=== PATIENT | female | born 1995 | race Caucasian/White ===

== ENCOUNTER 2018-10-09 13:14 | Emergency (ER) | payer MEDICAID ==
[~2018-10-09] VITALS: Ht 162.6 cm; Wt 67.1 kg
[2018-10-09 13:33] VITALS: BP 117/72
--- NOTE | 2018-10-09 13:33 | NUR ---
ED Nurse Note: Patient ambulated to ER from home c/o lower back pain 10/17 which started a week ago. Patient is alert and oriented x 4 and ambulatory. skin clean and intact. calm and cooperative. no acute distress noted at this time.
[2018-10-09] MEDS ORDERED: NKM (13:34)
--- NOTE | 2018-10-09 14:48 | Emergency Room Report ---
History of Present Illness General Chief Complaint: Pain Source: Patient Present Illness HPI 23-year-old female presents to the emergency department complaining of 8 out of 10 severity low back pain is 4 days. Patient denies trauma or fall she denies fevers or chills she does report some dysuria she denies hematuria, abdominal pain or tenderness. Patient reports suspicion for possible . Patient denies recent spinal procedures or history of neoplastic disease. She reports pain both midline and paraspinal without radiation. Denies numbness tingling or loss of sensation or gross motor movements of the extremities, incontinence of bowel or bladder. Denies CP, Palpitations, LOC, AMS, dizziness, Changes in Vision, weakness or a sudden severe headache. Allergies: Coded Allergies: No Known Allergies (Unverified , 10/09/18) Patient History Past Medical History: see triage record Past Surgical History: none Pertinent Family History: none Last Menstrual Period: 09/2018 Now: No Reviewed Nursing Documentation: PMH: Agreed; PSxH: Agreed Nursing Documentation-PMH Past Medical History: No History, Except For Review of Systems All Other Systems: negative except mentioned in HPI Physical Exam Vital Signs Date Time Temp Pulse Resp B/P (MAP) Pulse Ox O2 Delivery O2 Flow Rate FiO2 10/09/18 13:29 98.8 61 16 117/72 (87) 98 Room Air Sp02 EP Interpretation: reviewed, normal General Appearance: no apparent distress, alert, GCS 15, non-toxic Head: normocephalic, atraumatic Eyes: bilateral eye normal inspection, bilateral eye PERRL ENT: hearing grossly normal, normal voice Neck: full range of motion Respiratory: lungs clear, normal breath sounds, speaking full sentences Cardiovascular #1: regular rate, rhythm Gastrointestinal: non tender, soft, non-distended, no guarding Genitourinary: normal inspection, no CVA tenderness Musculoskeletal: gait/station normal, normal range of motion, tender - Mild Tenderness to palpation to paraspinal muscles of the lower back with mild midline tenderness as well, FROM, no step-offs or obvious deformities. no saddle anesthesia. Neurologic: alert, oriented x3, responsive, motor strength/tone normal, sensory intact, speech normal, grossly normal Psychiatric: judgement/insight normal Medical Decision Making PA Attestation Dr. Gaviria is my supervising Physician whom patient management has been discussed with. Diagnostic Impression: Primary Impression: Back pain Qualified Codes: M54.5 - Low back pain ER Course Pt. presents to ED c/o LBP. Ddx considered: UTI, , Pyelo, epidural abscess, fracture, sprain/strain , meningitis, spinal chord injury, sciatica, cauda equina, Pyelonephritis, renal calculi just to name a few. Vital signs reviewed and are WNL during ED visit. Pt. is afebrile with no signs of infection No new symptoms, and denies recent trauma. No saddle anesthesia noted, Pt. denies incontinence Neurovascular is intact ROM is limited due to pain * Mild Tenderness to palpation to paraspinal muscles of the lower back with mild midline tenderness as well, FROM, no step-offs or obvious deformities. no saddle anesthesia. *Pt. describes pain today as moderate and radiates across the lower back. ORDERS: -UA: WNL -urine Hcg: negative INTERVENTIONS: - Lidoderm - Tramadol PO - Toradol IM DISCHARGE: At this time pt. is stable for d/c to home. Will provide printed patient care instructions, and any necessary prescriptions. Care plan and follow up instructions have been discussed with the patient prior to discharge. Labs Test 10/09/18 14:40 Urine Color Yellow Urine Appearance Clear Urine pH 6 (4.5-8.0) Urine Specific [place] 1.015 (1.005-1.035) Urine Protein Negative (NEGATIVE) Urine Glucose (UA) Negative (NEGATIVE) Urine Ketones Negative (NEGATIVE) Urine Blood Negative (NEGATIVE) Urine Nitrite Negative (NEGATIVE) Urine Bilirubin Negative (NEGATIVE) Urine Urobilinogen 1 MG/DL (0.0-1.0) Urine Leukocyte Esterase Negative (NEGATIVE) Urine HCG, Qualitative Negative (NEGATIVE) Last Vital Signs Date Time Temp Pulse Resp B/P (MAP) Pulse Ox O2 Delivery O2 Flow Rate FiO2 10/09/18 13:33 98.8 73 16 117/72 98 Room Air Disposition: HOME, SELF-CARE Condition: Stable Scripts Ibuprofen* (MOTRIN*) 600 Mg Tablet 600 MG ORAL THREE TIMES A DAY, #30 TAB 0 Refills Prov: Nirmala Park 10/09/18 Methocarbamol* (ROBAXIN-750*) 750 Mg Tablet 750 MG PO QID for 7 Days, #28 TAB 0 Refills Prov: Nirmala Park 10/09/18 Patient Instructions: Back Pain, Adult, [id number] Additional Instructions: Take medications as directed. Follow up with a Primary Care Provider in 3-5 days, even if your symptoms have resolved. Return sooner to ED if new symptoms occur, or current symptoms become worse. Do not drink alcohol, drive, or operate heavy machinery while taking Robaxin ( Muscle Relaxer) as this may cause drowsiness. - Please note that this Emergency Department Report was dictated using TripletPl[employer] layer helper technology software, occasionally this can lead to erroneous entry secondary to interpretation by the dictation equipment. Nirmala Park Oct 09, 2018 14:48
[2018-10-09 15:15] LABS: APPEARANCE,URINE CLEAR; BILIRUBIN, URINE NEGATIVE (NEGATIVE); GLUCOSE, URINE (UA) NEGATIVE (NEGATIVE); KETONES,URINE NEGATIVE (NEGATIVE); LEUKOCYTE ESTERASE ,URINE NEGATIVE (NEGATIVE); NITRITE,URINE NEGATIVE (NEGATIVE); PH,URINE 6 (4.5-8.0); PROTEIN,URINE NEGATIVE (NEGATIVE); UROBILINOGEN,URINE 1 MG/DL (0.0-1.0)
[2018-10-09 15:16] LABS: COLOR,URINE YELLOW
[2018-10-09] MEDS ORDERED: ROBAXIN-750750 MG PO (15:22)
[2018-10-09] MEDS ORDERED: IBUPROFEN600 MG ORAL (15:22)
[2018-10-09] MEDS ORDERED: traMADol 50mg tab ORAL ONE (15:30)
[2018-10-09] MEDS ORDERED: Ketorolac 30mg Inj IM ONE (15:30)
[2018-10-09 15:45] VITALS: BP 122/71
--- NOTE | 2018-10-09 15:45 | NUR ---
ER DISCHARGE NOTE: Patient is cleared to be discharged per ERPA, pt is aox4, on room air, with stable vital signs. pt was given dc and prescription instructions, pt was able to verbalize understanding, pt id band removed. pt is able to ambulate with steady gait. pt took all belongings.
== END 2018-10-09 16:00 | disposition home or self-care (01) ==
LOC: EMR 16:00
DX: M54.5 Low back pain (principal)
CPT/HCPCS: 81003; 81025; 96372; 99283; J1885

== ENCOUNTER 2018-11-07 11:17 | Emergency (ER) | payer SELFPAY ==
[~2018-11-07] VITALS: Ht 162.6 cm; Wt 71.7 kg
[~2018-11-07 11:17] MED LIST: IBUPROFEN600 MG ORAL; NKM; ROBAXIN-750750 MG PO
[2018-11-07 11:23] VITALS: BP 120/67
--- NOTE | 2018-11-07 11:23 | NUR ---
ED Nurse Note: Patient walked in c/o back pain and stomach pain that started today with episodes of vomiting as well as dysuria. Pt denies diarrhea. Pt rates pain at 9/10. Pt is A&O x4 with no s/s of acute distress noted at this time. ERMD at bedside evaluating the pt.
--- NOTE | 2018-11-07 11:55 | NUR ---
ED Nurse Note: ERMD AT THE BEDSIDE EVALUATING THE PT. RN AT THE BEDSIDE THE WITNESS
[2018-11-07] MEDS ORDERED: CEPHALEXIN500 MG ORAL (12:01)
[2018-11-07] MEDS ORDERED: BACTRIM DS TAB1 EAC1 ORAL (12:01)
[2018-11-07] MEDS ORDERED: ACETAMINOPHEN-1 EAC1 ORAL (12:01)
[2018-11-07 12:10] VITALS: BP 75/67
--- NOTE | 2018-11-07 12:10 | NUR ---
ER DISCHARGE NOTE: Patient is cleared to be discharged per ERMD, pt is aox4, on room air, with stable vital signs. pt was given dc and prescription instructions, pt was able to verbalize understanding, pt id band and iv site removed without complications. pt is able to ambulate with steady gait. pt took all belongings.
--- NOTE | 2018-11-07 15:25 | Emergency Room Report ---
History of Present Illness General Chief Complaint: Vomiting Source: Patient Present Illness HPI 23-year-old female presents ED for evaluation. Patient states that she has some bumps around her rectal area for the last week. States they are very painful and itchy. Denies fevers or chills. Pain is throbbing, 6 out of 10, nonradiating. No other aggravating relieving factors. Denies any other associated symptoms Allergies: Coded Allergies: No Known Allergies (Unverified , 10/09/18) Patient History Past Medical History: none Past Surgical History: none Pertinent Family History: none Social History: Denies: smoking, alcohol use, drug use Now: No Immunizations: UTD Reviewed Nursing Documentation: PMH: Agreed; PSxH: Agreed Nursing Documentation-PMH Past Medical History: No History, Except For Review of Systems All Other Systems: negative except mentioned in HPI Physical Exam Vital Signs Date Time Temp Pulse Resp B/P (MAP) Pulse Ox O2 Delivery O2 Flow Rate FiO2 11/07/18 11:20 98.6 79 19 120/67 (84) 100 Room Air Sp02 EP Interpretation: reviewed, normal General Appearance: no apparent distress, alert, GCS 15, non-toxic Head: normocephalic Eyes: bilateral eye normal inspection, bilateral eye PERRL ENT: normal ENT inspection Neck: normal inspection Respiratory: normal inspection Cardiovascular #1: normal inspection Gastrointestinal: non tender Rectal: other - dental resident present, multiple healing abscesses to buttock. area of induration/erythema to R upper buttock. no fluctuance Genitourinary: no CVA tenderness Musculoskeletal: normal inspection Neurologic: alert, oriented x3, responsive, motor strength/tone normal, sensory intact, speech normal Psychiatric: normal inspection Skin: other - abscess L upper buttock Lymphatic: normal inspection Medical Decision Making Diagnostic Impression: Primary Impression: Abscess of buttock ER Course Hospital Course 23 yo F presents with multiple bumps to buttock Differential diagnoses include: Cellulitis, dermatitis, insect bite, abscess Clinical course Patient placed on stretcher. After initial history, physical exam reveals a young female in no acute distress. Her on present. On exam there are multiple healing abscesses on the buttock bilaterally. There is one area of induration and erythema to the right upper buttock. Nonfluctuant. No discharge. discussed findings with patient. Not amenable to I&D at this time. Will treat conservatively with warm compresses and antibiotics. Patient agrees with plan. Safe for discharge for close outpatient follow-up. Does not have a PMD. Will provide referrals Diagnosis - abscess of buttock stable and discharged to home with prescription for keflex, bactrim, tylenol # 3. warm soaks TID. Instructed to followup with PMD. Instructed return to ED if symptoms recur or worsen Last Vital Signs Date Time Temp Pulse Resp B/P (MAP) Pulse Ox O2 Delivery O2 Flow Rate FiO2 11/07/18 12:10 98.6 73 19 75/67 100 Room Air Status: improved Disposition: HOME, SELF-CARE Condition: Stable Scripts Acetaminophen With Codeine (T#3) (TYLENOL #3 TAB*) Y Tab 1 TAB ORAL Q8H PRN for For Pain, #12 TAB Prov: Kenn Howell MD 11/07/18 Trimethoprim/Sulfamethoxazole 160/800* (BACTRIM DS TABLET*) 1 Each Tablet 1 TAB ORAL Q12H, #14 TAB 0 Refills Prov: Kenn Howell MD 11/07/18 Cephalexin* (KEFLEX*) 500 Mg Capsule 500 MG ORAL EVERY 6 HOURS for 7 Days, CAP Prov: Kenn Howell MD 11/07/18 Referrals: NOT CHOSEN IPA/,REFERRING (PCP) [facility] Patient Instructions: Abscess, [id number] Kenn Howell MD Nov 07, 2018 15:25
== END 2018-11-07 12:10 | disposition home or self-care (01) ==
LOC: EMR 11:37
DX: L02.31 Cutaneous abscess of buttock (principal)
CPT/HCPCS: 99282

== ENCOUNTER 2019-01-01 11:44 | Emergency (ER) | payer SELFPAY ==
[~2019-01-01] VITALS: Ht 162.6 cm; Wt 68.0 kg
[~2019-01-01 11:44] MED LIST changes: +ACETAMINOPHEN-1 EAC1 ORAL; +BACTRIM DS TAB1 EAC1 ORAL; +CEPHALEXIN500 MG ORAL
--- NOTE | 2019-01-01 12:00 | NUR ---
ED Nurse Note: Pt walked in to ED due to pain on both ears for 2 days. Pt reports difficulty swallowing since this morning.
--- NOTE | 2019-01-01 12:12 | NUR ---
ED Nurse Note: ERMD at bedside
[2019-01-01 12:24] VITALS: BP 112/74
--- NOTE | 2019-01-01 12:34 | Emergency Room Report ---
History of Present Illness General Chief Complaint: Flu Like Symptoms Source: Medical Record Present Illness HPI 23-year-old presents to the emergency department complaining of 5 out of 10 severity bilateral ear pain that she describes as pressure sensation in addition to sore throat and persistent cough x1 week. Patient denies fevers or chills she reports she just moved here from the [place]. Patient states she believes she is up to vaccinations as long as they are consistent with ones required in the [place]. She did not receive this years flu vaccine. Patient denies headaches, stiff neck, photophobia, wheezing, shortness of breath , chest pain or palpitations. Patient denies any other aggravating or relieving factors she does report history of allergies to multiple things and states she does not take any allergy medication. Allergies: Coded Allergies: No Known Allergies (Unverified , 10/09/18) Patient History Past Medical History: see triage record Past Surgical History: none Pertinent Family History: none Reviewed Nursing Documentation: PMH: Agreed; PSxH: Agreed Nursing Documentation-PMH Past Medical History: No History, Except For Review of Systems All Other Systems: negative except mentioned in HPI Physical Exam Vital Signs Date Time Temp Pulse Resp B/P (MAP) Pulse Ox O2 Delivery O2 Flow Rate FiO2 01/01/19 11:53 98.8 72 18 112/74 (87) 99 Room Air Sp02 EP Interpretation: reviewed, normal General Appearance: no apparent distress, alert, GCS 15, non-toxic Head: normocephalic, atraumatic Eyes: bilateral eye normal inspection, bilateral eye PERRL ENT: hearing grossly normal, normal voice, TMs + canals normal, uvula midline, moist mucus membranes, nasal congestion Neck: full range of motion, no meningismus, no bony tend Respiratory: chest non-tender, lungs clear, normal breath sounds, no respiratory distress, no wheezing, speaking full sentences Cardiovascular #1: regular rate, rhythm, no edema Musculoskeletal: back normal, gait/station normal, normal range of motion, non- tender Neurologic: alert, oriented x3, responsive, motor strength/tone normal, sensory intact, speech normal, grossly normal Psychiatric: judgement/insight normal Skin: no rash Lymphatic: no adenopathy Medical Decision Making PA Attestation Dr. Malcolm Is my supervising Physician whom patient management has been discussed with. Diagnostic Impression: Primary Impression: Upper respiratory infection Qualified Codes: J06.9 - Acute upper respiratory infection, unspecified Additional Impressions: Sinus congestion Ear pain Qualified Codes: H92.03 - Otalgia, bilateral ER Course 23-year-old presents to the emergency department complaining of 5 out of 10 severity bilateral ear pain that she describes as pressure sensation in addition to sore throat and persistent cough x1 week. Patient denies fevers or chills she reports she just moved here from the [place]. Patient states she believes she is up to vaccinations as long as they are consistent with ones required in the DR. She did not receive this years flu vaccine. Patient denies headaches, stiff neck, photophobia, wheezing, shortness of breath , chest pain or palpitations. Patient denies any other aggravating or relieving factors she does report history of allergies to multiple things and states she does not take any allergy medication. Ddx considered but are not limited to URI, pneumonia, PE, strep pharyngitis, meningitis. Vital signs: Pt. is afebrile, the remaining VS are WNL H&PE are most consistent with URI- no meningeal signs, oropharynx is not involved, no evidence of bacterial infection at this time. suspect Rhinitis. ORDERS: none required at this time, the diagnosis is clinical ED INTERVENTIONS: None required at this time. DISCHARGE: At this time pt. is stable for d/c to home. Will provide printed patient care instructions, and any necessary prescriptions. Care plan and follow up instructions have been discussed with the patient prior to discharge. Last Vital Signs Date Time Temp Pulse Resp B/P (MAP) Pulse Ox O2 Delivery O2 Flow Rate FiO2 01/01/19 11:53 98.8 72 18 112/74 (87) 99 Room Air Disposition: HOME, SELF-CARE Condition: Stable Patient Instructions: Upper Respiratory Infection, Adult, [id number] Additional Instructions: Take medications as directed. Follow up with a Primary Care Provider in 3-5 days, even if your symptoms have resolved. --Please review list of primary care clinics, if you do not already have a primary care provider Return sooner to ED if new symptoms occur, or current symptoms become worse. Do not drink alcohol, drive, or operate heavy machinery while taking Cough Syrup as this may cause drowsiness. - Please note that this Emergency Department Report was dictated using dakickboat tester technology software, occasionally this can lead to erroneous entry secondary to interpretation by the dictation equipment. Nirmala Park Jan 01, 2019 12:34
[2019-01-01] MEDS ORDERED: IBUPROFEN600 MG ORAL ×2 (12:35→12:36)
[2019-01-01] MEDS ORDERED: PROMETHAZINE-C118 M1 ORAL (12:35)
[2019-01-01] MEDS ORDERED: ZYRTEC10 MG ORAL ×2 (12:35→12:36)
[2019-01-01] MEDS ORDERED: NEXAFED30 MG ORAL ×2 (12:35→12:36)
[2019-01-01 13:21] VITALS: BP 111/62
== END 2019-01-01 12:40 | disposition home or self-care (01) ==
LOC: EMR 12:29
DX: J06.9 Acute upper respiratory infection, unspecified (principal); H92.03 Otalgia, bilateral
CPT/HCPCS: 99281